=== PATIENT | male | born 2000 | race Caucasian/White ===

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

== ENCOUNTER → 2020-07-06 | Outpatient (CLI) | payer OTHER ==
[~2020-07-06] MED LIST changes: +DEBROX15 ML OT
[2020-07-06 18:14] LABS: BASO # 0.1 10*3/uL (0.0-0.1); BASO % 0.6 % (0.0-1.0); EOS # 0.2 10*3/uL (0.0-0.4); EOS % 2.4 % (1.0-4.0); HEMATOCRIT 47.7 % (42.0-52.0); LYMPH # 2.8 10*3/uL (1.3-4.4); LYMPH % 35.1 % (27.0-41.0); MEAN CELL VOLUME 90.7 fl (80.0-94.0); MEAN CORPUSCULAR HGB 29.8 pg (27.0-31.0); MEAN CORPUSCULAR HGB CONC 32.9 g/dl (33.0-37.0); MEAN PLATELET VOLUME 11.1 fl (9.6-12.3); MONO # 0.5 10*3/uL (0.1-1.0); NEUT # 4.4 10*3/uL (2.3-7.9); NEUT % 55.8 % (47.0-73.0); PLATELET COUNT AUTOMATED 289 10*3/uL (130-400); RED BLOOD COUNT 5.26 10*6/uL (4.50-5.90); RED CELL DISTRI WIDTH 12.2 % (0-14.5); WHITE BLOOD COUNT 7.9 10*3/uL (4.8-10.8)
[2020-07-06 18:41] LABS: ALBUMIN 4.1 gm/dl (3.1-4.5); ALKALINE PHOSPHATASE 80 U/L (45-117); BUN 8 mg/dl (7-24); CHLORIDE 107 mmol/L (98-107); CREATININE 1.09 mg/dL (0.70-1.30); LIPASE 93 U/L (73-393); SGOT/AST 13 IU/L (3-35); SGPT/ALT 21 U/L (12-78); SODIUM 140 mmol/L (136-145); TOTAL PROTEIN 7.8 gm/dL (6.4-8.2)
[2020-07-07 13:57] LABS: FREE T4 1.18 ng/dl (0.76-1.46)
[2020-07-07 14:02] LABS: THYROID STIM HORMONE (HS) 1.01 uIU/ml (0.358-4.75)
[2020-07-07 15:07] LABS: ENDOMYSIAL ANTIBODY IgA Negative (Negative)
[2020-07-07 17:07] LABS: t-TRANSGLUTAMINASE (tTG) IGA <2 U/mL (0-3); t-TRANSGLUTAMINASE (tTG) IgG 3 U/mL (0-5)
== END | disposition home or self-care (01) ==
LOC: LAB 16:57
PROVIDERS: ATTEND Pediatrics Adolescent Medicine
DX: R19.7 Diarrhea, unspecified (principal); K63.89 Other specified diseases of intestine; R63.4 Abnormal weight loss

== ENCOUNTER → 2020-07-15 | Outpatient (CLI) | payer OTHER ==
[2020-07-16 08:08] LABS: THYROID PEROXIDASE (TPO) AB <9 IU/mL (0-34)
[2020-07-16 15:07] LABS: THYROGLOBULIN ANTIBODY <1.0 IU/mL (0.0-0.9)
== END | disposition home or self-care (01) ==
LOC: LAB 15:29
PROVIDERS: ATTEND Pediatrics Adolescent Medicine
DX: R19.7 Diarrhea, unspecified (principal); R63.4 Abnormal weight loss

== ENCOUNTER → 2021-07-14 | Outpatient (CLI) | payer OTHER | END | disposition home or self-care (01) | LOC: US 14:42 | PROVIDERS: ATTEND Nurse Practitioner Family | DX: R33.8 Other retention of urine (principal) ==

== ENCOUNTER 2022-06-17 03:54 | Emergency (ER) | payer BC, OTHER ==
[~2022-06-17] VITALS: Ht 180.3 cm; Wt 86.2 kg
[2022-06-17] MEDS ORDERED: ZYRTEC10 M2 PO (04:10)
[2022-06-17] MEDS ORDERED: VYVANSE60 MG PO (04:10)
[2022-06-17] MEDS ORDERED: NAPROXEN250 MG PO (04:28)
== END 2022-06-17 04:35 | disposition home or self-care (01) ==
LOC: ED 03:54
DX: S29.011A Strain of muscle and tendon of front wall of thorax, initial encounter (principal); Z88.1 Allergy status to other antibiotic agents; Z88.2 Allergy status to sulfonamides; Z88.8 Allergy status to other drugs, medicaments and biological substances; X50.0XXA Overexertion from strenuous movement or load, initial encounter; Y93.89 Activity, other specified; Y92.89 Other specified places as the place of occurrence of the external cause; Y99.0 Civilian activity done for income or pay